=== PATIENT | female | born 1975 | race Caucasian/White ===

== ENCOUNTER → 2023-07-09 06:31 | Day surgery (SDC) | payer OTHER, SELFPAY | LOC: GI 06:31 | PROVIDERS: ATTENDING PHYSICIAN Specialist; FAMILY PHYSICIAN Family Medicine | DX: Z12.11 Encounter for screening for malignant neoplasm of colon (principal); K63.5 Polyp of colon; K63.89 Other specified diseases of intestine; Z86.010 Personal history of colon polyps | CPT/HCPCS: 45380; 88305 ==

== ENCOUNTER → 2023-10-15 09:26 | Outpatient (REF) | payer BC, SELFPAY | LOC: HWRAD 09:26 | PROVIDERS: ATTENDING PHYSICIAN Obstetrics & Gynecology; FAMILY PHYSICIAN Family Medicine | DX: N91.2 Amenorrhea, unspecified (principal); R22.1 Localized swelling, mass and lump, neck | CPT/HCPCS: 76536; 76830; 76856 ==

== ENCOUNTER → 2024-08-02 09:30 | Outpatient (REF) | payer BC, SELFPAY | LOC: HWRAD 09:30 | PROVIDERS: ATTENDING PHYSICIAN Family Medicine | DX: Z87.440 Personal history of urinary (tract) infections (principal) | CPT/HCPCS: 76770 ==

== ENCOUNTER → 2024-08-12 08:27 | Outpatient (REF) | payer BC, SELFPAY | LOC: HWRAD 08:27 | PROVIDERS: ATTENDING PHYSICIAN Obstetrics & Gynecology; FAMILY PHYSICIAN Family Medicine | DX: N30.10 Interstitial cystitis (chronic) without hematuria (principal); R39.15 Urgency of urination | CPT/HCPCS: 76830; 76856 ==

== ENCOUNTER → 2024-08-13 07:13 | Outpatient (REF) | payer BC, SELFPAY | LOC: RCS 07:13 | PROVIDERS: ATTENDING PHYSICIAN Internal Medicine Cardiovascular Disease; FAMILY PHYSICIAN Family Medicine | DX: E78.5 Hyperlipidemia, unspecified (principal); R00.2 Palpitations | CPT/HCPCS: 93306 ==

== ENCOUNTER → 2024-09-17 09:11 | Outpatient (REF) | payer BC, SELFPAY | LOC: RCS 09:11 | PROVIDERS: ATTENDING PHYSICIAN Internal Medicine Cardiovascular Disease; FAMILY PHYSICIAN Family Medicine | DX: R07.89 Other chest pain (principal); E78.5 Hyperlipidemia, unspecified | CPT/HCPCS: 93017; 93350 ==

== ENCOUNTER 2024-09-21 07:47 | Inpatient (IN) | payer BC, SELFPAY ==
[2024-09-20 15:07] VITALS: BP 125/83
[2024-09-20 15:31] VITALS: BMI 22.7
[2024-09-20 15:40] LABS: % Basophils 0.2 % (0-2); % Eosinophils 0.1 % (0-6); % Immature Granulocytes 0.6 % (0-0.5); % Lymphocytes 5.2 % (20.5-51.1); % Monocytes 6.9 % (1.7-9.3); Absolute Immature Granulocytes 0.1 10^3/uL (0-0.05); Absolute Lymphocytes 0.8 10^3/uL (1.2-3.4); Absolute Monocytes 1.1 10^3/uL (0.1-0.6); Absolute Neutrophils 13.5 10^3/uL (1.4-6.5); Hematocrit 37.1 % (37.0-47.0); Hemoglobin 12.7 g/dL (12.0-16.0); Mean Corp Hgb Conc. 34.2 g/dL (33.0-37.0); Mean Corpuscular Hgb 30.7 pg (27.0-31.0); Mean Corpuscular Volume 89.6 fL (81.0-99.0); Mean Platelet Volume 9.4 fL (7.4-10.4); Nucleated Red Blood Cells % 0 %; Platelet Count 231 10^3/uL (130-400); Red Blood Cell Count 4.14 10^6/uL (4.20-5.40); Red Cell Dist. Width 12.8 % (11.5-14.5); White Blood Cell Count 15.5 10^3/uL (4.8-10.8)
[2024-09-20] MEDS: DILAUDID 0.5 MG IV ×2 (15:54→18:02)
[2024-09-20] MEDS: ZOFRAN 4 MG IV ×2 (15:54→21:40)
[2024-09-20] MEDS: NSS 500 IV (15:55)
--- NOTE | 2024-09-20 15:57 | ED.GENMED ---
History of Present Illness
General
Chief Complaint: Flank Pain
Source: patient and spouse
Exam Limitations: none
Time Seen by Provider: 09/20/24 15:37
Nursing documentation reviewed up to this point in time: agreed with
History of Present Illness
History of Present Illness:
Patient presents to ED secondary to worsening left-sided abdominal pain over the past 3 weeks. Patient reports nausea sensation at the peak of the pain. Patient has taken Tylenol and Motrin with minimal relief in symptoms. Denies fever or chills.
Denies diarrhea. Denies change in bowel habits. Denies difficulty with urination. Since onset of symptoms, patient has been evaluated by her urogynecologist, without improving symptoms. Denies previous history of similar symptoms. Denies
recent sick contact. Denies recent change in medications or diet.
Past History
Past History
ED Past Medical History: Asthma and Other (IBS)
ED Past Surgical History:
Social History
Tobacco: Non-smoker
Alcohol: Occasional
Drug: None
Personal:
Living: with family
Review of Systems
Review of Systems
Allergies reviewed?: Yes
All Other Systems: ROS reviewed and negative except as documented in HPI and ROS
Constitutional: Reports no symptoms; Denies fever
Respiratory: Reports no symptoms
Cardiac: Reports no symptoms
ABD/GI: Reports abdominal pain and nausea; Denies vomiting or diarrhea
: Reports no symptoms
Musculoskeletal: Reports no symptoms
Skin: Reports no symptoms
Neurological: Reports no symptoms
Phy Exam
Physical Exam
Physical Exam:
Physical Exam
General: moderate painful distress, not acutely ill. afebrile
Head: nc/at. eomi
Neck: supple. normal range of motion.
Heart: s1/s2 regular rate and rhythm
Lungs: no acute respiratory distress. clear bilaterally
Abdomen: normal bowel sounds. mild LUQ/LLQ tenderness to palpation, without distention
Neuro: alert and oriented x 3. no focal neurological deficits
Skin: no rash
Psychiatric: well kept. interactive and cooperative
Extremities: no edema. no calf tenderness.
Course
Orders/Labs/Results
Orders:
Orders
09/20/24 Dinner
Regular
At Your Request: Full Participation
09/20/24 15:25
Test Result ONCE
09/20/24 15:32
Complete Blood Count/With Diff Urgent
Comprehensive Metabolic Panel Urgent
HCG, Serum Qualitative Screen Urgent
09/20/24 15:48
CT Abd/pel W Iv And Oral Contr Urgent
Comment:
Reason For Exam: LLQ pain
HYDROmorphone [Dilaudid] 0.5 mg IV NOW STA
Iohexol [Omnipaque] See Protocol PO NOW STA
Ondansetron Injectable [Zofran] 4 mg IV NOW STA
09/20/24 15:49
0.9% Sodium Chloride 500 ml [Nss] 500 ml IV BOLUS
09/20/24 18:00
HYDROmorphone [Dilaudid] 0.5 mg .ROUTE .STK-MED ONE
09/20/24 18:01
HYDROmorphone [Dilaudid] 0.5 mg IV NOW STA
09/20/24 18:17
Urinalysis Reflex To Culture Urgent
Date Specimen was Collected: 09/20/24
Time Specimen was Collected: 18:15
Urine Microscopic Reflex Cult Urgent
Urine Culture Urgent
MILO Source: U
Specimen Description:
Date Specimen was Collected: 09/20/24
Time Specimen was Collected: 18:15
09/20/24 18:54
Ketorolac [Toradol] 15 mg IV NOW STA
Pantoprazole [Protonix IV] 40 mg IV NOW STA
09/20/24 19:18
CefTRIAXone [Rocephin] 1,000 mg IV NOW STA
09/20/24 19:20
Sterile Water [Sterile Water For Injection] 10 ml .ROUTE .STK-MED ONE
09/20/24 19:53
Admit/Transfer Patient As Directed
Co-Sign Provider:
Level of Care: Observation services
Assign to:: Medical/Surgical
Physician / Group: Andrea
Diagnosis: Pyelonephritis
PRN Pain Medication Management As Directed
May give lesser potent ordered pain med per pt: Yes
preference::
Protocol:: Medication orders for pain may be administered in a
manner that supports deferring to patient preference
when the pt is:
- Requesting an ordered lesser potent pain medication.
Least to most potent pain medications are defined
as: acetaminophen < NSAID < tramadol < opioids
(morphine, oxycodone, hydromorphone).
- Requesting a lesser dose of the same medication IF
ORDERED.
- Requesting a less intrusive route of administration
if both routes are prescribed by the provider (PO <
IV).
09/20/24 19:54
Code Status As Directed
Resuscitation Status: Full Code
09/20/24 20:15
Acetaminophen [Tylenol] 650 mg PO Q4HPRN PRN
09/20/24 21:18
0.9% Sodium Chloride 1000 ml [Nss] 1,000 ml IV 100 mls/hr
Albuterol [ProAIR HFA INHALER] 2 puff INH R Q4HPRN PRN
Bisacodyl [Dulcolax] 10 mg RECTAL [id number] PRN
Docusate W/Senna [Senokot-S] 1 tablet PO BIDPRN PRN
Ketorolac [Toradol] 15 mg IV Q8HPRN PRN
Ondansetron Injectable [Zofran] 4 mg IV Q6HPRN PRN
Polyethylene Glycol Powder [Miralax] 17 grams PO DAILYPRN PRN
09/20/24 21:18
Activity As Directed
Activity Level: With Assistance
Vital Signs As Directed
Frequency: Per unit guidelines
DX Deep Vein Thrombosis Video Routine
09/20/24 22:00
Cetirizine HCl [Zyrtec] 10 mg PO HS
HydrOXYZINE [Atarax] 10 mg PO HS
Montelukast Sodium [Singulair] 10 mg PO HS
Tolterodine Extended Release [Detrol LA] 2 mg PO HS
Zolpidem Tartrate [Ambien] 5 mg PO HS
norethindrone ac-eth estradiol [Aurovela 05/17 ()] See Dose Instructions PO HS
09/21/24 06:00
Basic Metabolic Panel IN AM
Complete Blood Count/No Diff IN AM
09/21/24 08:00
Duloxetine Delayed Release [Cymbalta Delayed Release] 60 mg PO DAILY
09/21/24 18:00
Atorvastatin [Lipitor] 10 mg PO QPM
Enoxaparin Sodium [Lovenox] 40 mg SC QPM
09/21/24 20:00
CefTRIAXone [Rocephin] 1,000 mg IV Q24H
Abnormal Lab Results
09/20/24 09/20/24
15:32 18:17
WBC 15.5 H 10^3/uL
(4.8-10.8)
RBC 4.14 L 10^6/uL
(4.20-5.40)
Abs Immat Gran (auto) 0.1 H 10^3/uL
(0-0.05)
Absolute Neuts (auto) 13.5 H 10^3/uL
(1.4-6.5)
Absolute Lymphs (auto) 0.8 L 10^3/uL
(1.2-3.4)
Absolute Monos (auto) 1.1 H 10^3/uL
(0.1-0.6)
Immature Gran % 0.6 H %
(0-0.5)
Neutrophils % 87.0 H %
(42.2-75.2)
Lymphocytes % 5.2 L %
(20.5-51.1)
Urine Ketones 3+ A
(Negative)
Ur Occult Blood Reflex 3+ A
(Negative)
Urine Nitrite (Reflex) Positive A
(Negative)
Leukocyte Esterase Rfl 3+ A
(Negative)
Urine RBC 7-10 A /HPF
(0-2)
Urine WBC (Reflex) 80-90 A /HPF
(0-5)
Urine Bacteria (Reflex) Moderate A
(Negative)
Urine Albumin (Reflex) 2+ A
(Neg - Trace)
09/20/24 15:32
09/20/24 15:32
Vital Signs
Initial and Last Documented VS:
Initial Vital Signs
Temp Pulse Resp BP Pulse Ox
97.9 F 100 18 125/83 100
09/20/24 15:07 09/20/24 15:07 09/20/24 15:07 09/20/24 15:07 09/20/24 15:07
Last Documented Vital Signs
Temp Pulse Resp BP Pulse Ox
100.6 F H 106 14 132/84 97
09/20/24 21:33 09/20/24 21:33 09/20/24 21:33 09/20/24 21:33 09/20/24 21:33
MDM/Problems Addressed
MDM/Problems Addressed:
History, exam, and CT scan consistent with acute pyelonephritis. In light of patient's continual symptoms, patient be admitted for IV antibiotics and further pain control
*Critical Care Note
Total Time (30-74mins, 75-104mins- exclusive of procedures): Not Applicable
ED Attending Note
-
Portions of this chart may have been created with voice recognition software.� Occasional wrong word or��sound alike� substitutions may have occurred due to the inherent limitations of voice recognition software.
Discharge Plan
Departure
Patient Disposition: Admit
Date of Disposition: 09/20/24
Time of Disposition: 19:19
Admit to: Med/Surg
Presentation/result/management discussed w/ accepting MD/DO: Hospitalist
Discharge Problem:
Pyelonephritis, Intractable flank pain
Interventions
Interventions:
*Risk Screen - Suicide Last Done: 09/20/24 15:07
*General Assessment Last Done: 09/20/24 15:07
*Neglect/Abuse Screening Last Done: 09/20/24 15:07
*ED- Fall Risk Assessment Last Done: 09/20/24 18:16
*ED COVID-19 Vaccine History Last Done: 09/20/24 18:40
*Nursing Disposition Last Done: 09/20/24 21:13
IT-Vnhgaq-Nzfpjxqdvr Assessment Last Done: 09/20/24 19:35
ED-Female Genitourinary Assessment Last Done: 09/20/24 15:31
Discharge Date and Time
Discharge Date/Time: 09/20/24 21:13
[2024-09-20 16:01] LABS: HCG, Serum Qualitative Screen Negative
[2024-09-20 16:04] LABS: ALT (SGPT) 11 U/L (0-35); AST (SGOT) 16 U/L (14-36); Albumin 4.2 g/dl (3.5-5.0); Alkaline Phosphatase 46 U/L (38-126); Blood Urea Nitrogen 13 mg/dl (7-17); Calcium 9.1 mg/dl (8.4-10.2); Carbon Dioxide 23 mmol/L (22-30); Chloride 107 mmol/L (98-107); Estimated Creatinine Clearance 84 ml/min; Glucose 97 mg/dl (70-99); Potassium 3.8 mmol/L (3.5-5.1); Sodium 137 mmol/L (135-145); Total Bilirubin 0.8 mg/dl (0.2-1.3); Total Protein 7.5 g/dl (6.3-8.2); eGFR > 60.00
[2024-09-20] MEDS: OMNIPAQUE 50 ML PO (16:13)
[2024-09-20 18:16] VITALS: BP 129/74
[2024-09-20 18:27] LABS: Urine Albumin 2+ (Neg - Trace); Urine Bilirubin Negative (Negative); Urine Character Slightly Cloudy (Clear); Urine Color Yellow; Urine Glucose Negative (Negative); Urine Ketone 3+ (Negative); Urine Leukocyte 3+ (Negative); Urine Nitrite Positive (Negative); Urine Occult Blood 3+ (Negative); Urine Specific Gravity 1.025 (<1.030); Urine Urobilinogen Negative (Neg - 1+)
[2024-09-20 18:35] LABS: Urine Squamous Cell 0-2 /LPF (Few); Urine White Cell 80-90 /HPF (0-5)
[2024-09-20 18:36] LABS: Urine Bacteria Moderate (Negative)
[2024-09-20] MEDS: TORADOL 15 MG IV (18:57)
[2024-09-20] MEDS: PROTONIX IV 40 MG IV (18:57)
[2024-09-20] MEDS: ROCEPHIN 1000 MG IV (19:25)
--- NOTE | 2024-09-20 19:39 | HPS.HSE ---
Family Physician
-
Family Physician: Aziza Payne
Chief Complaint
-
Flank pain
History of Present Illness
This is a 49-year-old female with past medical history significant for mild asthma, recent diagnosis of interstitial cystitis, Crohn's disease, history of herniated disc status post 2 laminectomy who presents to the emergency department with
approximately 1 day of left-sided flank pain.
Patient reports that she has been battling abdominal pain pelvic pain dysuria urinary frequency for several weeks now. She has seen multiple specialists and has had a bladder visualization by urogyn specialist. She was diagnosed with interstitial
cystitis. 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 Few weeks ago she was treated with nitrofurantoin when she initially started having symptoms. This was
discontinued after cultures were negative. She had recurrence of the symptoms and again was started on Macrobid until cultures were negative and this was discontinued. Patient reports that she was tolerating her abdominal discomfort nausea as well
as intermittent vomiting for several days now until 2 days ago when she started having flank pain that was sharp and stabbing. She denies hematuria. She stated that the medications for interstitial cystitis with mirabegron and hydroxyzine and they
have not been effective. She is unable to tolerate p.o. She reports chills but denies any fevers. She denies history of kidney stones. She reports that she has been on [id number] Tylenol and ibuprofen last 24 hours up until the point where
they were no longer effective.
She has been having intractable pain in the emergency department but currently states that she feels better while not living after dilaudid
In the emergency department she remained afebrile with a temp of nine 7.9, blood pressure was 130/75 with a pulse of 100 and she was at 90% on room air.
She had leukocytosis to 15.5, hemoglobin was 12.7 and platelet count 231. Electrolytes were all within normal limits. BUN/creatinine were normal. Glucose was normal.
UA was markedly positive for nitrites and bacteria WBCs and some blood. Leukocyte esterase positive. CT of the abdomen pelvis showed left pyelonephritis, no stone, abscess, trauma no evidence of hydronephrosis. No acute inflammatory process
otherwise appreciated within the abdomen or pelvis.
Medical History
Past Medical History
Past Medical History: Reports Asthma and Other (Crohn's)
Past Surgical History: Reports , Gynocological (D&C), Orthopedic (L4-5 laminectomy and discectomy) and Other (Hernia repair)
Social History
Tobacco: Non-smoker
Alcohol: Occasional
Drug: None
Personal:
Living: With Family
Family History
Family History: Not pertinent
Allergies / Home Medications
Allergies reflects when Allergies were last updated in [facility].
Home Medications with original date entered in [facility]
Allergy/Medication List:
Allergies
Allergy/AdvReac Type Severity Reaction Status Date / Time
No Known Allergies Allergy Verified 09/20/24 15:10
Home Medications
Lactobacillus acidophilus 10 billion cell capsule (Probiotic) 1 tab PO DAILY 04/01/14
albuterol sulfate 90 mcg/actuation aerosol inhaler 2 puff inhalation R Q4HPRN PRN shortness of breath/wheezing 04/01/14
cetirizine 10 mg tablet 10 mg PO HS 04/01/14
ondansetron 4 mg disintegrating tablet 4 mg PO TIDPRN PRN nausea #10 tabs 04/01/14
montelukast 10 mg tablet 10 mg PO DAILY 01/29/20
duloxetine 60 mg capsule,delayed release (Cymbalta) 60 mg PO DAILY 09/20/24
estradiol 0.01% (0.1 mg/gram) vaginal cream 1 appful vaginal DAILY 09/20/24
hydroxyzine HCl 10 mg tablet 10 mg PO HS 09/20/24
mirabegron 25 mg tablet,extended release 24 hr 25 mg PO DAILY 09/20/24
norethindrone 1 mg-ethinyl estradiol 20 mcg (21)-iron 75 mg (7) tablet (Junel FE 05/17 (28)) 1 tab PO DAILY 09/20/24
rosuvastatin 10 mg tablet (Crestor) 10 mg PO DAILY 09/20/24
tirzepatide (weight loss) 15 mg/0.5 mL subcutaneous pen injector (Zepbound) 15 mg SC QWEEK 09/20/24
Review of Systems
-
History Source: Patient
Constitutional: Reports Chills
EENT: Reports No Symptoms
Respiratory: Reports No Symptoms
Cardiac: Reports No Symptoms
Abdomen/GI: Reports Abdominal Pain and Nausea
: Reports Frequency and Flank Pain
Musculoskeletal: Reports No Symptoms
Skin: Reports No Symptoms
Neurological: Reports No Symptoms
Endocrine: Reports No Symptoms
Hematologic/Lymphatic: Reports No Symptoms
Psych: Reports No Symptoms
Physical Exam
Vital Signs
Vital Signs
Temp Pulse Resp BP Pulse Ox
97.9 F 100 18 129/74 99
09/20/24 15:07 09/20/24 18:16 09/20/24 18:16 09/20/24 18:16 09/20/24 18:16
Physical Exam
General: Well Developed, Well Nourished and No Apparent Distress
HEENT: NormoCephalic, Moist mucous membranes and Atraumatic
Respiratory: Clear
Cardiac: S1/S2 and Regular Rhythm; No Murmur or Rub
GI: Soft, Non Tender, Non Distended and Normal Bowel Sounds; No Organomegaly
Rectal: Deferred by Provider
Genito-urinary: Costovertebral angle tend
Musculoskeletal: No Clubbing, No Cyanosis and No Edema
Skin: No Rash
Neuro: Nonfocal/grossly intact
Laboratory Results
-
09/20/24 15:32
09/20/24 15:32
Laboratory Results
Total Bilirubin 0.8 mg/dl (0.2-1.3) 09/20/24 15:32
AST 16 U/L (14-36) 09/20/24 15:32
ALT 11 U/L (0-35) 09/20/24 15:32
Alkaline Phosphatase 46 U/L (38-126) 09/20/24 15:32
Data Reviewed
-
CT Scan: Report Reviewed by me
Lab Data: Labs Reviewed by me
Old Records: Reviewed
Impression/Plan
-
IMPRESSION:
49 y.o female with h/o asthma, HLD, back surgery presenting with acute onset of left sided sharp/stabbing flank pain x 2 days with N/V and intolerance of PO. Has no fever but has been on RTC tylenol/ibuprofen. There is peripheral leukocytosis to
15, markedly + U/A and CT scan c/w left pyelonephritis. She does not have sepsis. She has been diagnosed with interstitial cystitis a few weeks ago but denies any improvement despite treatment.
PLAN:
Pyelonephritis - Flank pain, + U/A, consistent CT scan without any other findings. Intractable pain and nausea. S/P tx with macrobid for UTI in the last 3 -4 weeks.
- admit to med/surg observation
- urine cultures sent
- blood cultures if febrile
- ceftriaxone 1g q 24 hours for now
- continue pain control with prn toradol/dilaudid
- antiemetics and IV fluids
- continue hydroxyzine and mirabegron
Contine her montelukast duloxetine, and crestor
DVT PPX - lovenox sq
Code status - Full code
[2024-09-20 20:16] VITALS: BP 134/73
[2024-09-20] MEDS: TYLENOL 650 MG PO (20:20)
[2024-09-20 21:33] VITALS: BP 132/84; BMI 23.3
[2024-09-20] MEDS: ATARAX PO (21:34)
[2024-09-20] MEDS: DETROL LA 2 MG PO (21:39)
[2024-09-20] MEDS: AMBIEN 5 MG PO (21:39)
[2024-09-20] MEDS: ZYRTEC 10 MG PO (21:40)
[2024-09-20] MEDS: NSS 1000 IV (21:42)
[2024-09-20] MEDS: SINGULAIR 10 MG PO (21:46)
[2024-09-21] MEDS: TORADOL 15 MG IV ×4 (02:02→21:57)
--- NOTE | 2024-09-21 03:43 | PTCARENOTE ---
Patient admitted to 3W from ED via stretcher. Patient was able to walk independently into room. Patient reports her pain is mostly controlled at time of transfer to floor. Patient c/ mild nausea, Zofran given with good effect. Patient was able to
eat some saltine crackers and jell-o. Medications reviewed with patient as well as POC. Patient oriented to room and call menchaca. Call menchaca with in reach. Will continue to monitor.
[2024-09-21] MEDS: TYLENOL 650 MG PO ×3 (06:15→21:55)
[2024-09-21 06:24] LABS: Hematocrit 33.5 % (37.0-47.0); Hemoglobin 11.4 g/dL (12.0-16.0); Mean Corpuscular Hgb 30.6 pg (27.0-31.0); Mean Corpuscular Volume 89.8 fL (81.0-99.0); Mean Platelet Volume 9.4 fL (7.4-10.4); Platelet Count 214 10^3/uL (130-400); Red Blood Cell Count 3.73 10^6/uL (4.20-5.40); Red Cell Dist. Width 12.7 % (11.5-14.5); White Blood Cell Count 15.9 10^3/uL (4.8-10.8)
[2024-09-21 06:50] LABS: Blood Urea Nitrogen 5 mg/dl (7-17); Calcium 8.6 mg/dl (8.4-10.2); Carbon Dioxide 25 mmol/L (22-30); Chloride 108 mmol/L (98-107); Estimated Creatinine Clearance 96 ml/min; Glucose 100 mg/dl (70-99); Potassium 3.8 mmol/L (3.5-5.1); Sodium 137 mmol/L (135-145); eGFR > 60.00
[2024-09-21 07:05] VITALS: BP 121/71
[2024-09-21] MEDS: CYMBALTA DELAYED RELEASE 60 MG PO (07:55)
[2024-09-21] MEDS: NSS 1000 IV (07:55)
[2024-09-21] MEDS: ZOFRAN 4 MG IV ×2 (08:01→15:49)
--- NOTE | 2024-09-21 09:47 | W.PN.HOSP.TC ---
Today's Communication/Plan
-
Blood cultures
Continue antibiotics
Add oxycodone
Increase frequency of Toradol
Assessment / Plan
Assessment / Plan
Gen-AAOx3, NAD
HEENT-NC, AT, anicteric, clear oral mm
Neck-supple
CV-reg, no M, +S1/S2
Lungs-clear B/L
Abd-soft, tender left upper quadrant, and left flank
Ext-no edema
Musculoskeletal-no cyanosis, clubbing
Skin-warm and dry
Neuro-grossly non-focal
Psych-calm, cooperative
Sepsis due to left-sided pyelonephritis -POA. Unfortunately blood cultures not sent, will order now. Continue IV antibiotics, await cultures.
CT abdomen/pelvis consistent with left sided pyelonephritis. No obstructing renal stone.
Patient denies history of pyelonephritis.
Completed 2 courses of Macrobid in May with no change in her symptoms. Was subsequently diagnosed with interstitial cystitis.
Currently on Toradol IV every 8 hours as needed. Will increase to every 6 hours as needed. Add oxycodone as needed.
Interstitial cystitis - follows with Dr. Winter of urogynecology. [place] text message sent to Dr. Winter to update him regarding hospitalization.
Mild intermittent asthma -controlled.
Hyperlipidemia -atorvastatin.
IBS
Full code
Anticipated Discharge: > 48 hours
Subjective/Interval History
-
Date of Service: September 21, 2024
Patient seen and examined. Complaining of left-sided flank pain, left upper quadrant pain. Mild nausea.
Objective Data
-
Labs:
Laboratory Results
09/21/24
06:07
WBC 15.9 H
Hgb 11.4 L
Hct 33.5 L
Plt Count 214
Sodium 137
Potassium 3.8
Chloride 108 H
Carbon Dioxide 25
BUN 5 L
Creatinine 0.7
Glucose 100 H
Calcium 8.6
Vital Signs:
Vital Signs
Temp Pulse Resp BP Pulse Ox
101.3 F H 107 19 121/71 97
09/21/24 07:05 09/21/24 07:05 09/21/24 07:05 09/21/24 07:05 09/21/24 07:05
Review of Systems
-
History Source: Patient
All other systems: Reviewed and negative
[2024-09-21] MEDS: ROXICODONE 5 MG PO ×2 (11:10→18:35)
[2024-09-21] MEDS: 0.45%NACL 1000 IV ×2 (11:54→23:12)
--- NOTE | 2024-09-21 12:17 | CM ---
Patient seen at bedside
explained CM role
IA completed
Lives with in multistory home, 3 steps to enter, flight to bedroom/bathroom
PLOF: independent
Denies DME
Denies VN/rehab
Denies insecurities
PCP: Aziza Payne
pharmacy: [facility]
PLAN: Home, no needs when medically stable
[2024-09-21] MEDS: NON-FORMULARY ITEM 15 MG SC (12:57)
[2024-09-21 15:05] VITALS: BP 128/86
[2024-09-21] MEDS: LOVENOX 40 MG SC (17:06)
[2024-09-21] MEDS: LIPITOR 10 MG PO (17:06)
[2024-09-21] MEDS: ROCEPHIN 1000 MG IV (19:56)
[2024-09-21] MEDS: STERILE WATER FOR INJECTION 10 ML IV (19:56)
[2024-09-21] MEDS: AMBIEN 5 MG PO (21:47)
[2024-09-21] MEDS: DETROL LA 2 MG PO (21:47)
[2024-09-21] MEDS: SINGULAIR 10 MG PO (21:48)
[2024-09-21] MEDS: ATARAX 10 MG PO (21:48)
[2024-09-21] MEDS: ZYRTEC 10 MG PO (21:49)
[2024-09-21] MEDS: NON-FORMULARY ITEM 2 TABLET PO (21:49)
[2024-09-21 23:00] VITALS: BP 115/75
[2024-09-22] MEDS: ROXICODONE 5 MG PO ×4 (00:02→21:59)
[2024-09-22] MEDS: TYLENOL 650 MG PO ×4 (04:11→21:59)
[2024-09-22] MEDS: TORADOL 15 MG IV ×3 (04:12→18:47)
[2024-09-22 06:26] LABS: % Basophils 0.3 % (0-2); % Eosinophils 0.7 % (0-6); % Immature Granulocytes 0.5 % (0-0.5); % Lymphocytes 11.2 % (20.5-51.1); % Monocytes 8.7 % (1.7-9.3); % Neutrophils 78.6 % (42.2-75.2); Absolute Eosinophils 0.1 10^3/uL (0-0.7); Absolute Immature Granulocytes 0.1 10^3/uL (0-0.05); Absolute Lymphocytes 1.7 10^3/uL (1.2-3.4); Absolute Monocytes 1.3 10^3/uL (0.1-0.6); Absolute Neutrophils 11.9 10^3/uL (1.4-6.5); Hematocrit 31.1 % (37.0-47.0); Hemoglobin 10.5 g/dL (12.0-16.0); Mean Corp Hgb Conc. 33.8 g/dL (33.0-37.0); Mean Corpuscular Hgb 30.5 pg (27.0-31.0); Mean Corpuscular Volume 90.4 fL (81.0-99.0); Mean Platelet Volume 9.3 fL (7.4-10.4); Nucleated Red Blood Cells % 0 %; Platelet Count 192 10^3/uL (130-400); Red Blood Cell Count 3.44 10^6/uL (4.20-5.40); Red Cell Dist. Width 12.9 % (11.5-14.5); White Blood Cell Count 15.1 10^3/uL (4.8-10.8)
[2024-09-22 07:34] VITALS: BP 118/77
[2024-09-22] MEDS: CYMBALTA DELAYED RELEASE 60 MG PO (08:38)
[2024-09-22] MEDS: 0.45%NACL 1000 IV ×2 (08:41→17:51)
--- NOTE | 2024-09-22 12:58 | CM ---
Patient seen at bedside with
IV antibiotic, pain mgmt
PLAN: Home, when stable, no needs anticipated
[2024-09-22 15:54] VITALS: BP 112/76
--- NOTE | 2024-09-22 16:05 | DOWNTIME ---
There was a [employer] System [employer]st Downtime on 09/22/2024 from 1230 to 09/22/2024 at 1550. Downtime documentation of patient's care, including medication administrations, has been reconciled in the electronic record per guidelines. Refer to the
patient's paper chart under the miscellaneous tab to see printed paper medication records and downtime forms.
[2024-09-22] MEDS: SENOKOT-S 1 TABLET PO (16:32)
--- NOTE | 2024-09-22 16:45 | W.PN.HOSP.TC ---
Today's Communication/Plan
-
continue antibiotics
Assessment / Plan
Assessment / Plan
Gen-AAOx3, NAD
HEENT-NC, AT, anicteric, clear oral mm
Neck-supple
CV-reg, no M, +S1/S2
Lungs-clear B/L
Abd-soft, tender left upper quadrant, and left flank
Ext-no edema
Musculoskeletal-no cyanosis, clubbing
Skin-warm and dry
Neuro-grossly non-focal
Psych-calm, cooperative
Sepsis due to left-sided pyelonephritis -POA. Leukocytosis persists. Last fever was 09/21. Blood cx negative so far (but they were drawn after antibiotics started).
Urine culture pending. Continue IV antibiotics.
CT abdomen/pelvis consistent with left sided pyelonephritis. No obstructing renal stone.
Patient denies history of pyelonephritis.
Completed 2 courses of Macrobid in May with no change in her symptoms. Was subsequently diagnosed with interstitial cystitis.
Continue analgesics. I suspect her pain is exaggerated by underlying hyperalgesia due to interstitial cystitis.
Interstitial cystitis - follows with Dr. Winter of urogynecology. [place] text message sent to Dr. Winter to update him regarding hospitalization.
Mild intermittent asthma -controlled.
Hyperlipidemia -atorvastatin.
IBS
Full code
updated at bedside.
Anticipated Discharge: 24 - 48 hours
Subjective/Interval History
-
Date of Service: September 22, 2024
Patient seen/examined. Still with left flank and LUQ pain but somewhat improved compared to yesterday.
Objective Data
-
Labs:
Laboratory Results
09/22/24
06:11
WBC 15.1 H
Hgb 10.5 L
Hct 31.1 L
Plt Count 192
Vital Signs:
Vital Signs
Temp Pulse Resp BP Pulse Ox
99.2 F 90 14 112/76 98
09/22/24 15:54 09/22/24 15:54 09/22/24 15:54 09/22/24 15:54 09/22/24 15:54
I&O
09/21/24 09/22/24 09/23/24
06:59 06:59 06:59
Intake Total 1680 / 1680
Balance 1680 / 1680
Review of Systems
-
History Source: Patient
All other systems: Reviewed and negative
[2024-09-22] MEDS: LIPITOR 10 MG PO (17:50)
[2024-09-22] MEDS: LOVENOX 40 MG SC (17:50)
[2024-09-22] MEDS: ATIVAN 0.5 MG PO (18:47)
[2024-09-22] MEDS: ZOFRAN 4 MG IV (18:48)
[2024-09-22] MEDS: ROCEPHIN 1000 MG IV (19:58)
[2024-09-22] MEDS: STERILE WATER FOR INJECTION 10 ML IV (19:58)
[2024-09-22] MEDS: AMBIEN 5 MG PO (21:58)
[2024-09-22] MEDS: ZYRTEC 10 MG PO (21:58)
[2024-09-22] MEDS: DETROL LA 2 MG PO (21:58)
[2024-09-22] MEDS: SINGULAIR 10 MG PO (21:59)
[2024-09-22] MEDS: ATARAX 10 MG PO (21:59)
[2024-09-22] MEDS: NON-FORMULARY ITEM 1 TABLET PO (22:00)
[2024-09-22 23:36] VITALS: BP 129/83
[2024-09-23] MEDS: TORADOL 15 MG IV ×3 (00:55→15:17)
[2024-09-23] MEDS: TYLENOL 650 MG PO ×2 (05:14→22:29)
[2024-09-23] MEDS: ROXICODONE 5 MG PO ×4 (05:15→23:44)
[2024-09-23] MEDS: 0.45%NACL 1000 IV (05:21)
[2024-09-23 06:45] LABS: % Basophils 0.2 % (0-2); % Eosinophils 1.5 % (0-6); % Immature Granulocytes 0.5 % (0-0.5); % Lymphocytes 17.4 % (20.5-51.1); % Monocytes 8.3 % (1.7-9.3); % Neutrophils 72.1 % (42.2-75.2); Absolute Eosinophils 0.1 10^3/uL (0-0.7); Absolute Immature Granulocytes 0.1 10^3/uL (0-0.05); Absolute Lymphocytes 1.6 10^3/uL (1.2-3.4); Absolute Monocytes 0.8 10^3/uL (0.1-0.6); Absolute Neutrophils 6.6 10^3/uL (1.4-6.5); Hematocrit 30.3 % (37.0-47.0); Hemoglobin 10.4 g/dL (12.0-16.0); Mean Corp Hgb Conc. 34.3 g/dL (33.0-37.0); Mean Corpuscular Hgb 30.6 pg (27.0-31.0); Mean Corpuscular Volume 89.1 fL (81.0-99.0); Mean Platelet Volume 9.6 fL (7.4-10.4); Nucleated Red Blood Cells % 0 %; Platelet Count 206 10^3/uL (130-400); Red Cell Dist. Width 12.9 % (11.5-14.5); White Blood Cell Count 9.2 10^3/uL (4.8-10.8)
[2024-09-23 07:34] VITALS: BP 125/81
[2024-09-23] MEDS: CYMBALTA DELAYED RELEASE 60 MG PO (08:40)
--- NOTE | 2024-09-23 11:52 | W.PN.HOSP.TC ---
Addendum entered and electronically signed by Richie Vasquez DO 09/23/24 15:55:
Acute anemia due to hemodilution from IV fluid administration. IV fluids stopped.
Acute left-sided pyelonephritis due to E. coli bacteria.
Chronic interstitial cystitis
Microscopic hematuria -possibly due to interstitial cystitis, versus pyelonephritis.
Original Note:
Today's Communication/Plan
-
Continue antibiotics
Stop IV fluids
Change Toradol to [id number]
Bowel regimen
Ambulate
Assessment / Plan
Assessment / Plan
Gen-AAOx3, NAD
HEENT-NC, AT, anicteric, clear oral mm
Neck-supple
CV-reg, no M, +S1/S2
Lungs-clear B/L
Abd-soft, tenderness in upper abdomen and left flank improving
Ext-no edema
Musculoskeletal-no cyanosis, clubbing
Skin-warm and dry
Neuro-grossly non-focal
Psych-calm, cooperative
Sepsis due to left-sided pyelonephritis -POA. Leukocytosis resolved. Last fever was 09/21. Blood cx negative so far (but they were drawn after antibiotics started).
Urine culture shows E. coli, sensitivity pending. Continue IV antibiotics.
CT abdomen/pelvis consistent with left sided pyelonephritis. No obstructing renal stone.
Patient denies history of pyelonephritis.
Completed 2 courses of Macrobid in May with no change in her symptoms. Was subsequently diagnosed with interstitial cystitis.
Continue analgesics. I suspect her pain is exaggerated by underlying hyperalgesia due to interstitial cystitis.
Change NSAIDs to [id number]-doq-kxvmy. Add Protonix.
Bowel regimen.
Interstitial cystitis - follows with Dr. Winter of urogynecology. [place] text message sent to Dr. Winter to update him regarding hospitalization.
Mild intermittent asthma -controlled.
Hyperlipidemia -atorvastatin.
IBS
Full code
updated at bedside.
Anticipated Discharge: Within 24 hours
Subjective/Interval History
-
Date of Service: September 23, 2024
Patient seen and examined. Flank pain is improving, 6 out of 10 currently.
Objective Data
-
Labs:
Laboratory Results
09/23/24
06:11
WBC 9.2
Hgb 10.4 L
Hct 30.3 L
Plt Count 206
Vital Signs:
Vital Signs
Temp Pulse Resp BP Pulse Ox
98.0 F 89 16 125/81 97
09/23/24 10:43 09/23/24 07:34 09/23/24 07:34 09/23/24 07:34 09/23/24 07:34
I&O
09/22/24 09/23/24 09/24/24
06:59 06:59 06:59
Intake Total 1680 / 1680 2560 / 2560 400 / 400
Balance 1680 / 1680 2560 / 2560 400 / 400
Review of Systems
-
History Source: Patient
All other systems: Reviewed and negative
[2024-09-23] MEDS: PROTONIX 40 MG PO (12:04)
[2024-09-23] MEDS: MIRALAX 17 GRAMS PO (12:04)
--- NOTE | 2024-09-23 12:53 | CM ---
Home when stable, no needs.
Plan; Home no needs.
[2024-09-23 15:05] VITALS: BP 106/66
--- NOTE | 2024-09-23 15:18 | PN.CDI ---
CDI
- -
CDI:
Physician Documentation Request
Admit Date: 09/21/24 07:47
Dear Doctor Pedro,
Please review the following and provide your response in the progress notes.
Clinical Indicators:
Laboratory Tests
09/20/24 09/21/24 09/22/24
15:32 06:07 06:11
Hgb 12.7 11.4 L 10.5 L
Hct 37.1 33.5 L 31.1 L
09/23/24
06:11
Hgb 10.4 L
Hct 30.3 L
Based on the above, please clarify the most likely diagnosis/condition evaluated, monitored and/or treated?
Acute blood loss anemia
Precipitous drop in hematocrit
Other(please specify)
Use of terms such as suspected, likely, concern for, or probable (associated with a specific diagnosis that is being evaluated, monitored, or treated as if it exists) are acceptable and can be coded in the inpatient setting, when documented at the
time of discharge.
Thank you,
Michelle Soto RN BSN CCDS
CDI Specialist
Please contact via tiger text
Please use your independent medical judgment in providing your response.
--- NOTE | 2024-09-23 15:22 | PN.CDI ---
CDI
- -
CDI:
Physician Documentation Request
Admit Date: 09/21/24 07:47
Dear Doctor Pedro,
Please review the following and provide your response in the progress notes.
Clinical Indicators:
PN, 09/23
#Urine culture shows E. coli, sensitivity pending.
#...Continue IV antibiotics.
#...CT abdomen/pelvis consistent with left sided pyelonephritis.
#...No obstructing renal stone.
#...denies history of pyelonephritis.
#...Completed 2 courses of Macrobid in May with no change in her symptoms.
#...Was subsequently diagnosed with interstitial cystitis.
#Interstitial cystitis
Please provide further specificity regarding the site, etiology, acuity and know or suspected organism:
UTI
Pyelonephritis
Indicate if acute or chronic
Indicate if due to obstruction
Interstitial Cystitis
Indicate if acute or chronic
Indicate if associated with hematuria
Other, please specify
Use of terms such as suspected, likely, concern for, or probable (associated with a specific diagnosis that is being evaluated, monitored, or treated as if it exists) are acceptable and can be coded in the inpatient setting, when documented at the
time of discharge.
Thank you,
Michelle Soto RN BSN CCDS
CDI Specialist
Please contact via tiger text
Please use your independent medical judgment in providing your response.
--- NOTE | 2024-09-23 15:30 | PN.CDI ---
CDI
- -
CDI:
Physician Documentation Request
Admit Date: 09/21/24 07:47
Dear Doctor Pedro,
Please review the following and provide your response in the progress notes.
Clinical Indicators:
Laboratory Tests
09/20/24 09/21/24 09/22/24
15:32 06:07 06:11
Hgb 12.7 11.4 L 10.5 L
Hct 37.1 33.5 L 31.1 L
09/23/24
06:11
Hgb 10.4 L
Hct 30.3 L
Based on the above, please clarify the most likely diagnosis/condition evaluated, monitored and/or treated?
Acute blood loss anemia
Precipitous drop in hematocrit
Abnormal lab value, clinically insignificant
Other(please specify)
Use of terms such as suspected, likely, concern for, or probable (associated with a specific diagnosis that is being evaluated, monitored, or treated as if it exists) are acceptable and can be coded in the inpatient setting, when documented at the
time of discharge.
Thank you,
Michelle Soto RN BSN CCDS
CDI Specialist
Please contact via tiger text
Please use your independent medical judgment in providing your response.
[2024-09-23] MEDS: LIPITOR 10 MG PO (17:47)
[2024-09-23] MEDS: LOVENOX 40 MG SC (17:47)
[2024-09-23] MEDS: ZOFRAN 4 MG IV (18:42)
[2024-09-23] MEDS: ROCEPHIN 1000 MG IV (20:24)
[2024-09-23] MEDS: STERILE WATER FOR INJECTION 10 ML IV (20:24)
[2024-09-23] MEDS: SINGULAIR 10 MG PO (22:06)
[2024-09-23] MEDS: AMBIEN 5 MG PO (22:06)
[2024-09-23] MEDS: ATARAX 10 MG PO (22:07)
[2024-09-23] MEDS: TORADOL IV ×2 (22:07→23:58)
[2024-09-23] MEDS: DETROL LA 2 MG PO (22:07)
[2024-09-23] MEDS: ZYRTEC 10 MG PO (22:07)
[2024-09-23] MEDS: NON-FORMULARY ITEM 1 TABLET PO (22:08)
[2024-09-23 23:13] VITALS: BP 135/86
[2024-09-24] MEDS: ROXICODONE 5 MG PO (04:33)
--- NOTE | 2024-09-24 05:35 | PTCARENOTE ---
Pt IV found to be infiltrated. VAT notified at 2223. PT stuck 4 times by VAT, thy were unsuccessful. Pt requested to not be stuck and would try again during day shift, as the only IV meds ordered are Q6 Toradol and Rocephin that is not do until
2000 the next day.
[2024-09-24 06:16] LABS: % Basophils 0.3 % (0-2); % Eosinophils 1.3 % (0-6); % Immature Granulocytes 0.3 % (0-0.5); % Lymphocytes 21.6 % (20.5-51.1); % Monocytes 7.9 % (1.7-9.3); % Neutrophils 68.6 % (42.2-75.2); Absolute Eosinophils 0.1 10^3/uL (0-0.7); Absolute Lymphocytes 1.6 10^3/uL (1.2-3.4); Absolute Monocytes 0.6 10^3/uL (0.1-0.6); Absolute Neutrophils 5.2 10^3/uL (1.4-6.5); Hematocrit 30.9 % (37.0-47.0); Hemoglobin 10.5 g/dL (12.0-16.0); Mean Corpuscular Hgb 30.3 pg (27.0-31.0); Mean Platelet Volume 9.1 fL (7.4-10.4); Nucleated Red Blood Cells % 0 %; Platelet Count 252 10^3/uL (130-400); Red Blood Cell Count 3.47 10^6/uL (4.20-5.40); Red Cell Dist. Width 12.8 % (11.5-14.5); White Blood Cell Count 7.6 10^3/uL (4.8-10.8)
[2024-09-24 07:25] VITALS: BP 111/72
[2024-09-24] MEDS: CYMBALTA DELAYED RELEASE 60 MG PO (08:33)
[2024-09-24] MEDS: PROTONIX 40 MG PO (08:33)
[2024-09-24] MEDS: MIRALAX 17 GRAMS PO (08:33)
[2024-09-24] MEDS: TYLENOL 650 MG PO ×2 (08:36→13:43)
[2024-09-24] MEDS: ZOFRAN 4 MG IV (09:04)
--- NOTE | 2024-09-24 11:32 | W.PN.HOSP.TC ---
Today's Communication/Plan
-
Bowel regimen
Ambulate
Assessment / Plan
Assessment / Plan
Gen-AAOx3, NAD
HEENT-NC, AT, anicteric, clear oral mm
Neck-supple
CV-reg, no M, +S1/S2
Lungs-clear B/L
Abd-soft, tenderness in upper abdomen and left flank improving
Ext-no edema
Musculoskeletal-no cyanosis, clubbing
Skin-warm and dry
Neuro-grossly non-focal
Psych-calm, cooperative
Sepsis due to left-sided pyelonephritis -POA. Leukocytosis resolved. Last fever was 09/21. Blood cx negative so far (but they were drawn after antibiotics started).
Urine culture shows E. coli, sensitivity pending. Continue IV antibiotics.
CT abdomen/pelvis consistent with left sided pyelonephritis. No obstructing renal stone.
Patient denies history of pyelonephritis.
Completed 2 courses of Macrobid in May with no change in her symptoms. Was subsequently diagnosed with interstitial cystitis.
Continue analgesics. I suspect her pain is exaggerated by underlying hyperalgesia due to interstitial cystitis.
Change NSAIDs to [id number]. Add Protonix.
Bowel regimen. Encouraged ambulation.
Interstitial cystitis - follows with Dr. Winter of urogynecology. [place] text message sent to Dr. Winter to update him regarding hospitalization.
Mild intermittent asthma -controlled.
Hyperlipidemia -atorvastatin.
IBS
Full code
Dispo - likely discharge tomorrow after urine culture sensitivity resulted.
updated at bedside.
Anticipated Discharge: Within 24 hours
Subjective/Interval History
-
Date of Service: September 24, 2024
Patient seen and examined. Complaining of abdominal discomfort, bloating. Constipated. No appetite.
Objective Data
-
Labs:
Laboratory Results
09/24/24
05:46
WBC 7.6
Hgb 10.5 L
Hct 30.9 L
Plt Count 252 D
Vital Signs:
Vital Signs
Temp Pulse Resp BP Pulse Ox
97.7 F 85 16 111/72 98
09/24/24 07:25 09/24/24 07:25 09/24/24 07:25 09/24/24 07:25 09/24/24 07:25
I&O
09/23/24 09/24/24 09/25/24
06:59 06:59 06:59
Intake Total 2560 / 2560 800 / 800
Balance 2560 / 2560 800 / 800
Review of Systems
-
History Source: Patient
All other systems: Reviewed and negative
[2024-09-24] MEDS: DULCOLAX 10 MG PO (11:47)
[2024-09-24] MEDS: TORADOL 15 MG IV ×2 (14:59→21:01)
[2024-09-24] MEDS: FLUSH (NSS) 2 FLUSH IV (14:59)
--- NOTE | 2024-09-24 15:14 | CM ---
Patient chart reviewed
tentative dc tomorrow
encourage ambulation
PLAN: home, no needs when stable
[2024-09-24 15:24] VITALS: BP 112/82
[2024-09-24] MEDS: LIPITOR 10 MG PO (17:26)
[2024-09-24] MEDS: LOVENOX 40 MG SC (17:27)
[2024-09-24 19:00] VITALS: BP 122/73
[2024-09-24] MEDS: ROCEPHIN 1000 MG IV (20:53)
[2024-09-24] MEDS: STERILE WATER FOR INJECTION 10 ML IV (20:54)
[2024-09-24] MEDS: ZYRTEC 10 MG PO (21:01)
[2024-09-24] MEDS: SINGULAIR 10 MG PO (21:01)
[2024-09-24] MEDS: ATARAX 10 MG PO (21:01)
[2024-09-24] MEDS: DETROL LA 2 MG PO (21:01)
[2024-09-24 23:00] VITALS: BP 128/88
[2024-09-24] MEDS: AMBIEN 5 MG PO (23:02)
[2024-09-25 03:00] VITALS: BP 132/87
[2024-09-25] MEDS: TORADOL IV (05:18)
[2024-09-25 07:48] VITALS: BP 126/90
[2024-09-25] MEDS: MIRALAX 17 GRAMS PO (08:16)
[2024-09-25] MEDS: CYMBALTA DELAYED RELEASE 60 MG PO (08:16)
[2024-09-25] MEDS: PROTONIX 40 MG PO (08:16)
[2024-09-25] MEDS: TORADOL 15 MG IV (09:39)
--- NOTE | 2024-09-25 11:03 | W.PN.HOSP.TC ---
Today's Communication/Plan
-
Discharge
Assessment / Plan
Assessment / Plan
Gen-AAOx3, NAD
HEENT-NC, AT, anicteric, clear oral mm
Neck-supple
CV-reg, no M, +S1/S2
Lungs-clear B/L
Abd-soft, tenderness in upper abdomen and left flank improving
Ext-no edema
Musculoskeletal-no cyanosis, clubbing
Skin-warm and dry
Neuro-grossly non-focal
Psych-calm, cooperative
Sepsis due to left-sided pyelonephritis -POA. Sepsis resolved.
Urine culture shows ESBL E. coli, sensitive to Bactrim.
Will discharge on Bactrim double strength twice daily for 14 days. Ibuprofen as needed pain. Follow-up with PCP and urogynecology.
Interstitial cystitis - follows with Dr. Winter of urogynecology. [place] text message sent to Dr. Winter to update him regarding hospitalization.
Mild intermittent asthma -controlled.
Hyperlipidemia -atorvastatin.
IBS
Full code
Dispo -medically stable for discharge today. Outpatient follow-up.
updated at bedside.
Anticipated Discharge: Today
Subjective/Interval History
-
Date of Service: September 25, 2024
Patient seen and examined. Feeling better overall, less flank pain. Eager to go home.
Objective Data
-
Vital Signs:
Vital Signs
Temp Pulse Resp BP Pulse Ox
98.2 F 95 16 126/90 97
09/25/24 07:48 09/25/24 07:48 09/25/24 07:48 09/25/24 07:48 09/25/24 07:48
I&O
09/24/24 09/25/24 09/26/24
06:59 06:59 06:59
Intake Total 800 / 800 960 / 960
Balance 800 / 800 960 / 960
Review of Systems
-
History Source: Patient
All other systems: Reviewed and negative
--- NOTE | 2024-09-25 11:08 | W.DS.TRANS ---
DC Summary - Commercial Specialist
-
Discharge Instructions:
Discharge Diagnosis/Procedures Left-sided pyelonephritis
Diet Regular
Activity As tolerated
Driving Restrictions As prior to admission
Bathing Restrictions None
Instructions:
Stand-Alone Forms:
Changes to Home Medications: No
Discharge Medications:
DC Medications w/original date entered in [facility]
albuterol sulfate 90 mcg/actuation aerosol inhaler 2 puff inhalation R Q4HPRN PRN shortness of breath/wheezing 04/01/14
cetirizine 10 mg tablet 10 mg PO HS Allergies 04/01/14
ondansetron 4 mg disintegrating tablet 4 mg PO TIDPRN PRN nausea #10 tabs 04/01/14
montelukast 10 mg tablet 10 mg PO HS Allergies 01/29/20
atorvastatin 10 mg tablet (Lipitor) 10 mg PO QPM High Cholesterol 09/20/24
duloxetine 60 mg capsule,delayed release (Cymbalta) 60 mg PO DAILY Mental Health/Anxiety 09/20/24
estradiol 0.01% (0.1 mg/gram) vaginal cream 1 appful vaginal SUWE@1999 Hormonal Agent 09/20/24
eszopiclone 2 mg tablet (Lunesta) 2 mg PO HS Sleep 09/20/24
hydroxyzine HCl 10 mg tablet 10 mg PO HS Sleep 09/20/24
mirabegron 25 mg tablet,extended release 24 hr 25 mg PO HS Urinary Issue 09/20/24
norethindrone acetate 1 mg-ethinyl estradiol 20 mcg tablet (Aurovela) 1 tab PO HS HORMONES 09/20/24
tirzepatide (weight loss) 15 mg/0.5 mL subcutaneous pen injector (Zepbound) 15 mg SC JANSEN WEIGHT LOSS 09/20/24
ibuprofen 800 mg tablet 800 mg PO Q6H PRN Pain #20 tabs 09/25/24
pantoprazole 40 mg tablet,delayed release 40 mg PO DAILY #30 tabs 09/25/24
sulfamethoxazole 800 mg-trimethoprim 160 mg tablet (Bactrim DS) 1 tab PO BID #27 tabs 09/25/24
Home Medication Changes
Pending Results: No
[2024-09-25] MEDS: BACTRIM DS 800 MG/160 MG 1 TABLET PO (11:15)
--- NOTE | 2024-09-25 11:24 | CM ---
Patient seen at bedside with
discharge today to home
IMM n/a
PLAN: home, no needs
to transport
[2024-09-25 11:32] VITALS: BP 124/78
== END 2024-09-25 11:27 | disposition home or self-care (01) | DRG 872 ==
LOC: 3 WEST ACU 07:47
PROVIDERS: ADMITTING PHYSICIAN Internal Medicine; ATTENDING PHYSICIAN Hospitalist; EMERGENCY PHYSICIAN Emergency Medicine; FAMILY PHYSICIAN Family Medicine
DX: A41.9 Sepsis, unspecified organism (principal); N12 Tubulo-interstitial nephritis, not specified as acute or chronic; N10 Acute pyelonephritis; E78.5 Hyperlipidemia, unspecified; J45.20 Mild intermittent asthma, uncomplicated; K58.8 Other irritable bowel syndrome; N30.11 Interstitial cystitis (chronic) with hematuria
CPT/HCPCS: 74177; 80048; 80053; 81003; 81015; 84703; 85025; 85027; 87040; 87086; 87088; 87186; 96374; 96375; 96376; 99285; J1335; Q9967

== ENCOUNTER 2025-02-05 14:30 | Emergency (ER) | payer BC, SELFPAY ==
[2025-02-05 14:33] VITALS: BP 161/100
--- NOTE | 2025-02-05 17:13 | ED.SKININJ ---
HPI-Injury
General
Chief Complaint: Head Injury
Source: patient and spouse
Exam Limitations: none
Time Seen by Provider: 02/05/25 15:43
Nursing documentation reviewed up to this point in time: agreed with
History of Present Illness-Injury
Is this injury a work related problem?: No
Is pt an associate of [facility]/[place]?: No
Initial Injury comments:
Patient states she was hit by a softball on left tenriism. states she dropped to the ground. Large hematoma, small abrasion noted to left tenriism. Injury occurred just [employer]
Past History
Past History
ED Past Medical History: Asthma and Other (IBS)
ED Past Surgical History:
Social History
Tobacco: Non-smoker
Alcohol: Occasional
Drug: None
Personal:
Living: with family
Review of Systems
Review of Systems
Allergies reviewed?: Yes
All Other Systems: ROS reviewed and negative except as documented in HPI and ROS
Constitutional: Reports no symptoms
EENT: Reports no symptoms
Respiratory: Reports no symptoms
Cardiac: Reports no symptoms
ABD/GI: Reports nausea
: Reports no symptoms
Musculoskeletal: Reports no symptoms
Skin: Reports other (abrasion left forehead)
Neurological: Reports headache
Psychiatric: Reports no symptoms
Skin Exam
Abrasion
left forehead:
Description of abrasion: superfical/clean
Phy Exam
General Physical Exam
General Presentation: well appearing and mild distress
General age: appears stated age
General Skin: warm and dry
General Habitus: normal
General Mental: alert
ENT Exam
ENT Exam: EOMI and TM's normal
Eye Exam
Eye Exam: PERRL, EOMI, conjunctiva normal and globe normal
Neurological Exam
Neurological Exam: alert, oriented x3, CN II-XII intact, no motor deficits, no sensory deficits and speech normal
Schlater Coma Scale
Eye Opening: Spontaneous
Verbal Response: Oriented
Motor Response: Obeys Commands
GCS Total Score: 15
Mental
Mental Status: oriented to person, oriented to place, oriented to time and usual mental status
Describe Speech: normal speech
Cranial
Cranial Nerves: normal
EOM (CN3/4/6): intact
Motor
Seizure Activity: none
Gait: normal
Tremors: none
Other Movement Disorders: none
Right upper extremity: 4
Right lower extremity: 4
Left upper extremity: 4
Left lower extremity: 4
Bilateral upper extremities: 4
Bilateral lower extremities: 4
Sensory
Sensory Exam: intact
Cerebellar
Cerebellar Function: normal finger to nose, normal heel to [place] and normal Romberg test
Musculoskeletal Exam
Musculoskeletal Exam: full ROM and neuro vasc intact
Skin Exam
Skin Exam: normal color, warm/dry and no rash
Psychiatric Exam
Psychiatric Exam: normal mood/affect
Course
Orders/Labs/Results
Orders:
Orders
02/05/25 14:[address] [CT Head W/o Iv Contrast] Urgent
Comment:
Reason For Exam: head injury
02/05/25 17:11
Acetaminophen [Tylenol] 1,000 mg PO NOW STA
Vital Signs
Initial and Last Documented VS:
Initial Vital Signs
Temp Pulse Resp BP Pulse Ox
98 F 92 16 161/100 99
02/05/25 14:33 02/05/25 14:33 02/05/25 14:33 02/05/25 14:33 02/05/25 14:33
Last Documented Vital Signs
Temp Pulse Resp BP Pulse Ox
98 F 92 16 161/100 99
02/05/25 14:33 02/05/25 14:33 02/05/25 14:33 02/05/25 14:33 02/05/25 14:33
*Radiology
Radiology exam reviewed: radiology read reviewed
*Pulse Oximetry
SaO2: 99
Oxygen Mode of Delivery: Room air
Patient hypoxic: no
*Critical Care Note
Total Time (30-74mins, 75-104mins- exclusive of procedures): Not Applicable
Update Note
Update Note:
Patient to ED after softball hit her on tenriism area. reports brief LOC. Head CT neg for acute findings. Neurologically she is at her baseline. Neuro exam unremarkable. VSS. Given tylneol in ED for her headache. Will discharge home and
she will follow up with PCP.
ED Attending Note
-
Portions of this chart may have been created with voice recognition software.� Occasional wrong word or��sound alike� substitutions may have occurred due to the inherent limitations of voice recognition software.
Discharge Plan
Departure
Patient Disposition: Home (Routine Discharge)
Date of Disposition: 02/05/25
Time of Disposition: 17:11
Patient with high blood pressure during this ER visit?: No
Condition: Good
Covid-19: Not Applicable
Discharge Problem:
Head injury, acute
Instructions: Head Injury in Adults (DC), Contusion (DC), Wound care - ED (DC), Abrasions - ED (DC)
Prescriptions:
No Action
cetirizine 10 MG tablet
10 mg PO HS
albuterol sulfate 1 PUFF HFA aerosol inhaler
2 puff inhalation R Q4HPRN PRN (Reason: shortness of breath/wheezing)
ondansetron 4 MG tablet,disintegrating
4 mg PO TIDPRN PRN (Reason: nausea) Qty: 10 1RF
montelukast 10 MG tablet
10 mg PO HS
estradiol 0.01 % (0.1 mg/gram) Cream
1 appful VAGINAL SUWE@1999
hydroxyzine HCl 10 mg Tablet
10 mg PO HS
duloxetine [Cymbalta] 60 mg Capsule,Delayed Release(Dr/Ec)
60 mg PO DAILY
mirabegron 25 mg Tablet Extended Release 24 Hr
25 mg PO HS
Zepbound 15 mg/0.5 mL Pen Injector
15 mg SC JANSEN
atorvastatin [Lipitor] 10 mg Tablet
10 mg PO QPM
norethindrone ac-eth estradiol [Aurovela 05/17 (21)] 1-20 mg-mcg Tablet
1 tab PO HS
eszopiclone [Lunesta] 2 mg Tablet
2 mg PO HS
pantoprazole 40 mg Tablet,Delayed Release (Dr/Ec)
40 mg PO DAILY Qty: 30 0RF
sulfamethoxazole-trimethoprim [Bactrim DS] 800-160 mg tablet
1 tab PO BID Qty: 27 0RF
ibuprofen 800 mg tablet
800 mg PO Q6H PRN (Reason: Pain) Qty: 20 0RF
Referrals:
UNKNOWN - PT DOES,NOT KNOW [Family Provider]
Activity Restrictions/Additional Instructions:
FOllow up with your family doctor.
Interventions
Interventions:
*Risk Screen - Suicide Last Done: 02/05/25 14:34
*Neglect/Abuse Screening Last Done: 02/05/25 14:34
ED- Neurological Assessment Last Done: 02/05/25 15:37
ED-Skin Assessment Last Done: 02/05/25 15:37
Discharge Date and Time
Print Language: HUNGARIAN
[2025-02-05] MEDS: TYLENOL 1000 MG PO (17:27)
== END 2025-02-05 17:25 | disposition home or self-care (01) ==
LOC: EMR 14:30
PROVIDERS: EMERGENCY PHYSICIAN Emergency Medicine
DX: S09.90XA Unspecified injury of head, initial encounter (principal); J45.909 Unspecified asthma, uncomplicated; K58.9 Irritable bowel syndrome, unspecified; W21.07XA Struck by softball, initial encounter; Y93.64 Activity, baseball
CPT/HCPCS: 99284; 70450

== ENCOUNTER → 2025-03-01 15:01 | Outpatient (REF) | payer BC, SELFPAY | LOC: HWRAD 15:01 | PROVIDERS: ATTENDING PHYSICIAN Student in an Organized Health Care Education/Training Program | DX: R59.0 Localized enlarged lymph nodes (principal) | CPT/HCPCS: 76536 ==

== ENCOUNTER → 2025-04-27 08:31 | Outpatient (REF) | payer BC, SELFPAY | LOC: HWRAD 08:31 | PROVIDERS: ATTENDING PHYSICIAN Obstetrics & Gynecology; FAMILY PHYSICIAN Student in an Organized Health Care Education/Training Program | DX: R93.89 Abnormal findings on diagnostic imaging of other specified body structures (principal) | CPT/HCPCS: 76830; 76856 ==